=== PATIENT | male | born 1990 | race Caucasian/White ===

== ENCOUNTER 2021-08-09 13:33 | Emergency (ER) | payer OTHER ==
[2021-08-09] MEDS ORDERED: AFRIN15 M1 (15:13)
[2021-08-09] MEDS ORDERED: NORCO 5-325 TA1 EACH PO (15:13)
== END 2021-08-09 16:00 | disposition home or self-care (01) ==
LOC: FER 13:33
DX: S02.2XXA Fracture of nasal bones, initial encounter for closed fracture (principal); W22.8XXA Striking against or struck by other objects, initial encounter; Y92.89 Other specified places as the place of occurrence of the external cause; Y99.0 Civilian activity done for income or pay
CPT/HCPCS: 70486